=== PATIENT | female | born 1985 | race Caucasian/White ===

== ENCOUNTER 2020-09-13 10:50 | Emergency (ER) | payer OTHER, MEDICAID ==
[~2020-09-13] VITALS: Ht 165.1 cm; Wt 73.0 kg
[2020-09-13] MEDS ORDERED: TESSALON PERLE100 MG PO (12:27)
[2020-09-13] MEDS ORDERED: APAP W/CODEINE1 TA2 PO (12:27)
[2020-09-13] MEDS ORDERED: PROMETHAZI6.25 MG/5 PO (12:27)
[2020-09-13 12:43] VITALS: BP 142/86
== END 2020-09-13 12:44 | disposition home or self-care (01) ==
LOC: M.ERS 10:50
DX: U07.1 COVID-19 (principal)

== ENCOUNTER 2021-04-06 12:16 | Emergency (ER) | payer OTHER, MEDICAID ==
[~2021-04-06] VITALS: Ht 165.1 cm; Wt 74.4 kg
[~2021-04-06 12:16] MED LIST: APAP W/CODEINE1 TA2 PO; PROMETHAZI6.25 MG/5 PO; TESSALON PERLE100 MG PO
[2021-04-06 12:44] LABS: URINE BILIRUBIN NEGATIVE (Negative); URINE BLOOD NEGATIVE (Negative); URINE CLARITY CLEAR; URINE COLOR YELLOW; URINE GLUCOSE-RANDOM NEGATIVE (Negative); URINE KETONES NEGATIVE (Negative); URINE LEUKOCYTES-REFLEX NEGATIVE (Negative); URINE NITRITE-REFLEX NEGATIVE (Negative); URINE PROTEIN NEGATIVE (Negative); URINE UROBILINOGEN 0.2 E.U./dl (0.2-1.0)
[2021-04-06] MEDS ORDERED: FLAGYL500 M1 PO ×2 (13:52→13:56)
[2021-04-06 14:36] VITALS: BP 110/74
== END 2021-04-06 14:37 | disposition home or self-care (01) ==
LOC: M.ERS 12:16
PROVIDERS: Nurse Practitioner Family
DX: N76.0 Acute vaginitis (principal); B96.89 Other specified bacterial agents as the cause of diseases classified elsewhere